=== PATIENT | male | born 1960 | race Caucasian/White ===

== ENCOUNTER 2024-02-02 11:35 | Inpatient (IN) | payer MEDICAID ==
[~2024-02-02] VITALS: Ht 165.1 cm
[~2024-02-02 11:35] MED LIST: FERR325T6 MT; PROT40 MT; SUCR1ORA15 PO
[2024-02-02 13:11] LABS: CHLORIDE 88 mEq/L (98-107); POTASSIUM 4.3 mEq/L (3.5-5.1); SODIUM 124 mEq/L (136-145)
[2024-02-02 13:12] LABS: CALCIUM 8.9 mg/dL (8.7-10.4); CARBON DIOXIDE 25 mEq/L (21-32)
[2024-02-02] MEDS: SODIUM CHLORIDE 0.9% 1000ML BAG (SEPSIS BOLUS) IV ONE (13:12)
[2024-02-02] MEDS: PIPERACILLIN/TAZO 3.375G/50ML 50 ML IV ONE (13:12)
[2024-02-02 13:16] LABS: HEMATOCRIT. 37.1 % (42.0-52.0); HEMOGLOBIN. 12.5 g/dL (14.0-18.0); MEAN CORPUSCULAR HEMOGLOBIN 32.5 pg (28.0-32.0); MEAN CORPUSCULAR HGB CONC 33.7 g/dL (31.0-37.0); MEAN CORPUSCULAR VOLUME 96.4 fL (80.0-94.0); MEAN PLATELET VOLUME 8.5 fl (7.4-10.4); PLATELET 188 x1000/uL (130-400); RED BLOOD CELL COUNT 3.85 mill/uL (4.7-6.1); RED CELL DISTRIBUTION WIDTH 13.8 % (11.6-14.6); WHITE BLOOD COUNT 18.5 x1000/uL (4.5-11.0)
[2024-02-02 13:16] LABS: INR 1.3
[2024-02-02 13:17] LABS: CREATININE 1.1 mg/dL (0.6-1.3); GLUCOSE 259 mg/dL (70-105); UREA NITROGEN BLOOD 14 mg/dL (9-23)
[2024-02-02 13:29] LABS: DIFFERENTIAL COMMENT 1
[2024-02-02] MEDS ORDERED: CLINDAMYCIN 600 MG in DEXTROSE 5% WATER 50 ML IV ONE (13:30)
[2024-02-02 14:16] LABS: PLATELET ESTIMATE NORMAL
[2024-02-02] MEDS: VANCOMYCIN 1G PREMIX 200 ML IV ONE (14:18)
[2024-02-02] MEDS: CLINDAMYCIN 600MG PREMIX 50 ML IV NR (14:52)
[2024-02-02 23:15] VITALS: BP 146/80; PULSE 102; RESP 20; TEMP 96.8
[2024-02-03] VITALS: BP 146/80; PULSE 102; RESP 20; TEMP 96.6
[2024-02-03] MEDS ORDERED: HYDROCODONE/ACETAMINOPHEN 5/325MG TABLET PO PRN ×2 (03:30→04:15)
[2024-02-03] MEDS ORDERED: NALOXONE HCL 0.4MG/ML VIAL IV PRN ×2 (03:45→04:30)
[2024-02-03 04:00] VITALS: BP 99/51; PULSE 93; RESP 18; TEMP 98.2
[2024-02-03] MEDS ORDERED: ONDANSETRON HCL 4MG/2ML INJ IV PRN (04:15)
[2024-02-03] MEDS ORDERED: MAGNESIUM/ALUMINUM HYDROXIDE/SIMETHICONE 30ML UDC PO PRN (04:15)
[2024-02-03] MEDS ORDERED: DEXTROSE 50% WATER 50ML SYRINGE IV PRN ×2 (04:15)
[2024-02-03] MEDS: AMLODIPINE 10MG TABLET PO SCH (04:15)
[2024-02-03] MEDS ORDERED: CLONIDINE 0.1MG TABLET PO PRN (04:15)
[2024-02-03] MEDS: VANCOMYCIN 750MG/150ML (BAXTER) IV SCH ×2 (06:30→16:47)
[2024-02-03 06:44] LABS: CHLORIDE 92 mEq/L (98-107); POTASSIUM 3.8 mEq/L (3.5-5.1); SODIUM 125 mEq/L (136-145)
[2024-02-03 06:45] LABS: CALCIUM 8.3 mg/dL (8.7-10.4); CARBON DIOXIDE 23 mEq/L (21-32)
[2024-02-03 06:50] LABS: ALANINE AMINOTRANSFERASE 24 IU/L (10-49); CREATININE 0.8 mg/dL (0.6-1.3); GLUCOSE 248 mg/dL (70-105); UREA NITROGEN BLOOD 14 mg/dL (9-23)
[2024-02-03 06:52] LABS: ASPARTATE AMINOTRANSFERASE 33 IU/L (<34); BILIRUBIN TOTAL 0.8 mg/dL (0.1-1.0); PROTEIN TOTAL 6.8 g/dL (6.0-8.3)
[2024-02-03] MEDS: BLOOD SUGAR DIAGNOSTIC STRIP TEST SCH (07:10)
[2024-02-03 08:00] VITALS: BP 109/66; PULSE 90; RESP 20; TEMP 97.9
[2024-02-03] MEDS: PANTOPRAZOLE SODIUM 40 MG/VIAL IV SCH (08:50)
[2024-02-03 08:51] LABS: HEMATOCRIT. 31.3 % (42.0-52.0); HEMOGLOBIN. 10.9 g/dL (14.0-18.0); MEAN CORPUSCULAR HEMOGLOBIN 32.8 pg (28.0-32.0); MEAN CORPUSCULAR HGB CONC 34.7 g/dL (31.0-37.0); MEAN CORPUSCULAR VOLUME 94.5 fL (80.0-94.0); MEAN PLATELET VOLUME 9.3 fl (7.4-10.4); PLATELET 166 x1000/uL (130-400); RED BLOOD CELL COUNT 3.32 mill/uL (4.7-6.1); RED CELL DISTRIBUTION WIDTH 14.2 % (11.6-14.6); WHITE BLOOD COUNT 16.7 x1000/uL (4.5-11.0)
[2024-02-03 08:52] LABS: DIFFERENTIAL COMMENT 1
[2024-02-03] MEDS: INSULIN LISPRO 100 UNITS/ML SUBCUT SCH (09:29)
[2024-02-03] MEDS ORDERED: HEPARIN 25,000 UNITS PREMIX 250 ML IV SCH (09:45)
[2024-02-03] MEDS: PIPERACILLIN/TAZO 3.375G/50ML 50 ML IV NR (10:15)
[2024-02-03 10:57] LABS: CLARITY URINE CLEAR (CLEAR); COLOR URINE YELLOW (YELLOW); GLUCOSE URINE 3+ (NEGATIVE); KETONES URINE 1+ (NEGATIVE); LEUKOCYTE ESTERASE URINE NEGATIVE (NEGATIVE); NITRITE URINE NEGATIVE (NEGATIVE); OCCULT BLOOD URINE NEGATIVE (NEGATIVE); PH URINE 6.5 (4.5-8.0); PROTEIN URINE NEGATIVE (NEGATIVE); SPECIFIC GRAVITY URINE 1.026 (1.005-1.030)
[2024-02-03 11:21] LABS: *AMPHETAMINES SCREEN URINE NEGATIVE (NEGATIVE); *BARBITURATES SCREEN URINE NEGATIVE (NEGATIVE); *COCAINE SCREEN URINE NEGATIVE (NEGATIVE)
[2024-02-03 11:22] LABS: ECSTASY MDMA SCREEN URINE NEGATIVE (NEGATIVE); METHADONE URINE SCREEN NEGATIVE (NEGATIVE); OPIATES URINE SCREEN NEGATIVE (NEGATIVE); PHENCYCLIDINE URINE SCREEN NEGATIVE (NEGATIVE)
[2024-02-03 12:00] VITALS: BP 128/77; PULSE 90; RESP 20; TEMP 98.2
[2024-02-03] MEDS: POVIDONE-IODINE 10% TOPICAL SOLN 240ML TOP SCH (12:00)
[2024-02-03 12:05] LABS: BACTERIA URINE NONE SEEN; SQUAMOUS EPITHELIAL CELL URINE RARE /lpf (RARE/1+)
[2024-02-03 12:06] LABS: RBC URINE 0-2 /hpf (0-2); WBC URINE NONE SEEN /hpf (0-2)
[2024-02-03 14:23] LABS: ERYTHROCYTE SEDIMENTATION RATE 96 mm/hr (0-20)
[2024-02-03] MEDS: HEPARIN 80 UNITS/KG BOLUS IV NR (14:32)
[2024-02-03] MEDS: HEPARIN 25,000 UNITS PREMIX 250 ML IV SCH (14:33)
[2024-02-03] MEDS: PIPERACILLIN/TAZO 3.375G/50ML 50 ML IV SCH (14:44)
[2024-02-03 16:00] VITALS: BP 130/64; PULSE 98; RESP 20; TEMP 98.1
[2024-02-03 16:36] LABS: PLATELET ESTIMATE NORMAL
[2024-02-03] MEDS: CLINDAMYCIN HCL 150MG CAPSULE PO SCH (19:40)
[2024-02-03 20:00] VITALS: BP 113/63; PULSE 95; RESP 18; TEMP 100
[2024-02-03] MEDS ORDERED: HEPARIN BOLUS PRN aPTT <36 IV (20:00)
[2024-02-03] MEDS ORDERED: HEPARIN BOLUS PRN aPTT 37-44 IV (20:00)
[2024-02-03] MEDS ORDERED: VANCOMYCIN 750MG/150ML (BAXTER) IV SCH (21:00)
[2024-02-04] VITALS: BP 94/61; PULSE 90; RESP 20; TEMP 97.2
[2024-02-04] MEDS: SODIUM CHLORIDE 0.9% 1,000 ML IV SCH (00:46)
[2024-02-04 04:00] VITALS: BP 99/52; PULSE 87; RESP 18; TEMP 98.8
[2024-02-04 07:19] LABS: MEAN CORPUSCULAR HEMOGLOBIN 32.6 pg (28.0-32.0); MEAN CORPUSCULAR HGB CONC 34.6 g/dL (31.0-37.0); MEAN CORPUSCULAR VOLUME 94.3 fL (80.0-94.0); PLATELET 160 x1000/uL (130-400); RED BLOOD CELL COUNT 3.07 mill/uL (4.7-6.1); RED CELL DISTRIBUTION WIDTH 13.9 % (11.6-14.6); WHITE BLOOD COUNT 12.8 x1000/uL (4.5-11.0)
[2024-02-04 07:27] LABS: CALCIUM 8.2 mg/dL (8.7-10.4); CARBON DIOXIDE 25 mEq/L (21-32); CHLORIDE 94 mEq/L (98-107); POTASSIUM 3.8 mEq/L (3.5-5.1); SODIUM 128 mEq/L (136-145)
[2024-02-04 07:28] LABS: THYROID STIMULATING HORMONE 1.59 uIU/mL (0.55-4.78)
[2024-02-04 07:29] LABS: T4 FREE 1.11 ng/dL (0.89-1.76)
[2024-02-04 07:31] LABS: PROTEIN TOTAL 6.6 g/dL (6.0-8.3)
[2024-02-04 07:32] LABS: CREATININE 0.8 mg/dL (0.6-1.3); GLUCOSE 242 mg/dL (70-105)
[2024-02-04 07:33] LABS: LDL CHOLESTEROL 45 mg/dL (5-100); TRIGLYCERIDE 76 mg/dL (0-150); UREA NITROGEN BLOOD 14 mg/dL (9-23)
[2024-02-04 07:34] LABS: ALANINE AMINOTRANSFERASE 23 IU/L (10-49); ALBUMIN 2.9 g/dL (3.2-4.8); ASPARTATE AMINOTRANSFERASE 29 IU/L (<34); CHOLESTEROL 81 mg/dL (<200); HDL CHOLESTEROL 22 mg/dL (>55)
[2024-02-04 07:35] LABS: BILIRUBIN DIRECT 0.4 mg/dL (<=3.0); BILIRUBIN TOTAL 0.7 mg/dL (0.1-1.0); PHOSPHORUS 3.2 mg/dL (2.5-4.9)
[2024-02-04 07:48] LABS: TROPONIN I HIGH SENSITIVITY < 4 ng/L (3.0-53)
[2024-02-04 08:00] VITALS: BP 111/60; PULSE 83; RESP 16; TEMP 97.2
[2024-02-04 08:04] LABS: DIFFERENTIAL COMMENT 1
[2024-02-04] MEDS ORDERED: BACITRACIN 14GM TUBE TOP ONE (09:11)
[2024-02-04] MEDS ORDERED: POLYMYXIN B SULFATE 500000 UNITS/VIAL ONE (09:11)
[2024-02-04] MEDS ORDERED: BUPIVACAINE HCL/PF 0.5% (5MG/ML) 10ML ONE (09:11)
[2024-02-04] MEDS ORDERED: LIDOCAINE HCL 1% 10 MG/ML 10ML VIAL ONE (09:12)
[2024-02-04] MEDS: VANCOMYCIN 1GM/200ML PMX (BAXTER) IV SCH (12:00)
[2024-02-04] MEDS ORDERED: PROPOFOL 200MG/20ML VIAL IV ONE (12:22)
[2024-02-04] MEDS ORDERED: MIDAZOLAM HCL 2 MG/2 ML VIAL ONE (12:22)
[2024-02-04] MEDS ORDERED: FENTANYL CITRATE/PF 50MCG/ML 2ML VIAL ONE (12:22)
[2024-02-04] MEDS ORDERED: LABETALOL 5MG/ML 4ML INJ IV PRN (12:45)
[2024-02-04] MEDS ORDERED: MEPERIDINE HCL/PF 25MG/ML CPJ IV PRN (12:45)
[2024-02-04] MEDS ORDERED: HYDROMORPHONE HCL/PF 2MG/ML INJ IV PRN (12:45)
[2024-02-04] MEDS ORDERED: ONDANSETRON HCL 4MG/2ML INJ IV PRN (12:45)
[2024-02-04 16:00] VITALS: BP 123/70; PULSE 95; RESP 20; TEMP 99.7
[2024-02-04 16:47] LABS: PLATELET ESTIMATE NORMAL
[2024-02-04] MEDS: LACTOBACILLUS GG CAPSULE PO SCH (18:55)
[2024-02-04] MEDS: ENOXAPARIN 40MG/0.4ML SYR SUBCUT SCH (18:55)
[2024-02-04 20:00] VITALS: BP 102/60; PULSE 72; RESP 18; TEMP 100
[2024-02-04] MEDS: ACETAMINOPHEN 325MG TABLET PO PRN (20:53)
[2024-02-05] VITALS: BP 90/58; PULSE 80; RESP 18; TEMP 96.9
[2024-02-05 04:00] VITALS: BP 100/49; PULSE 76; RESP 18; TEMP 97.9
[2024-02-05 07:20] LABS: HEMATOCRIT. 31.2 % (42.0-52.0); HEMOGLOBIN. 10.6 g/dL (14.0-18.0); MEAN CORPUSCULAR HEMOGLOBIN 32.3 pg (28.0-32.0); MEAN PLATELET VOLUME 8.4 fl (7.4-10.4); PLATELET 167 x1000/uL (130-400); RED BLOOD CELL COUNT 3.28 mill/uL (4.7-6.1); RED CELL DISTRIBUTION WIDTH 13.9 % (11.6-14.6); WHITE BLOOD COUNT 13.1 x1000/uL (4.5-11.0)
[2024-02-05 07:33] LABS: DIFFERENTIAL COMMENT 1
[2024-02-05 07:35] LABS: CARBON DIOXIDE 26 mEq/L (21-32); CHLORIDE 96 mEq/L (98-107); POTASSIUM 3.9 mEq/L (3.5-5.1); SODIUM 130 mEq/L (136-145)
[2024-02-05 07:36] LABS: CALCIUM 8.5 mg/dL (8.7-10.4)
[2024-02-05 07:40] LABS: CREATININE 0.7 mg/dL (0.6-1.3)
[2024-02-05 07:41] LABS: GLUCOSE 180 mg/dL (70-105); UREA NITROGEN BLOOD 11 mg/dL (9-23)
[2024-02-05 07:42] LABS: ALANINE AMINOTRANSFERASE 32 IU/L (10-49); ALBUMIN 3.2 g/dL (3.2-4.8); ASPARTATE AMINOTRANSFERASE 49 IU/L (<34)
[2024-02-05 07:43] LABS: BILIRUBIN DIRECT 0.5 mg/dL (<=3.0); BILIRUBIN TOTAL 0.9 mg/dL (0.1-1.0); PHOSPHORUS 3.1 mg/dL (2.5-4.9)
[2024-02-05 08:00] VITALS: BP 105/60; PULSE 74; RESP 20; TEMP 97.5
[2024-02-05] MEDS: ASPIRIN 81MG TABLET PO SCH (08:30)
[2024-02-05 12:00] VITALS: BP 110/62; PULSE 78; RESP 18; TEMP 98.9
[2024-02-05 15:41] LABS: NUCLEATED RED BLOOD CELLS 1 /100 WBC
[2024-02-05 15:42] LABS: PLATELET ESTIMATE NORMAL
[2024-02-05 16:00] VITALS: BP 102/65; PULSE 80; RESP 18; TEMP 98.9
[2024-02-05 20:00] VITALS: BP 104/58; PULSE 78; RESP 18; TEMP 97.7
[2024-02-06] VITALS: BP 104/60; PULSE 80; RESP 18; TEMP 97.8
[2024-02-06 04:00] VITALS: BP 99/51; PULSE 74; RESP 20; TEMP 97.9
[2024-02-06 08:00] VITALS: BP 105/59; PULSE 78; RESP 20; TEMP 97.5
[2024-02-06 12:00] VITALS: BP 100/62; PULSE 80; RESP 20; TEMP 98.5
[2024-02-06] MEDS: INSULIN GLARGINE 100 UNITS/ML SUBCUT SCH (15:32)
[2024-02-06 16:00] VITALS: BP 106/64; PULSE 80; RESP 18; TEMP 97.9
[2024-02-06] MEDS: INSULIN LISPRO 100 UNITS/ML SUBCUT SCH (17:38)
[2024-02-06 20:00] VITALS: BP 117/59; PULSE 75; RESP 20; TEMP 97.5
[2024-02-07] VITALS: BP 104/56; PULSE 76; RESP 18; TEMP 98.8
[2024-02-07 04:00] VITALS: BP 103/51; PULSE 73; RESP 18; TEMP 98.1
[2024-02-07 07:01] LABS: CARBON DIOXIDE 24 mEq/L (21-32); CHLORIDE 99 mEq/L (98-107); POTASSIUM 3.8 mEq/L (3.5-5.1); SODIUM 131 mEq/L (136-145)
[2024-02-07 07:02] LABS: CALCIUM 8.4 mg/dL (8.7-10.4)
[2024-02-07 07:03] LABS: BASOPHILS % 0.9 % (0.0-2.0); HEMATOCRIT. 30.7 % (42.0-52.0); HEMOGLOBIN. 10.5 g/dL (14.0-18.0); LYMPHOCYTES % 13.3 % (20.0-50.0); MEAN CORPUSCULAR HEMOGLOBIN 32.4 pg (28.0-32.0); MEAN CORPUSCULAR HGB CONC 34.4 g/dL (31.0-37.0); MEAN CORPUSCULAR VOLUME 94.3 fL (80.0-94.0); MEAN PLATELET VOLUME 8.8 fl (7.4-10.4); MONOCYTES % 10.8 % (2.0-8.0); PLATELET 178 x1000/uL (130-400); RED BLOOD CELL COUNT 3.25 mill/uL (4.7-6.1); WHITE BLOOD COUNT 6.7 x1000/uL (4.5-11.0)
[2024-02-07 07:07] LABS: CREATININE 0.8 mg/dL (0.6-1.3); GLUCOSE 240 mg/dL (70-105); UREA NITROGEN BLOOD 11 mg/dL (9-23)
[2024-02-07 08:00] VITALS: BP 143/75; PULSE 90; RESP 18; TEMP 96
[2024-02-07 12:00] VITALS: BP 123/74; PULSE 80; RESP 20; TEMP 97
[2024-02-07 16:00] VITALS: BP 124/76; PULSE 73; RESP 20; TEMP 97.6
[2024-02-07] MEDS: VANCOMYCIN 750MG/150ML (BAXTER) IV SCH (18:22)
[2024-02-07 20:00] VITALS: BP 124/76; PULSE 76; RESP 18; TEMP 97.5
[2024-02-08] VITALS: BP 127/68; PULSE 74; RESP 17; TEMP 97.6
[2024-02-08 07:47] LABS: CALCIUM 8.5 mg/dL (8.7-10.4); POTASSIUM 3.9 mEq/L (3.5-5.1)
[2024-02-08 08:00] VITALS: BP 100/56; PULSE 80; RESP 20; TEMP 98
[2024-02-08 08:02] LABS: BASOPHILS % 0.8 % (0.0-2.0); EOSINOPHILS % 2.8 % (0.0-5.0); HEMATOCRIT. 31.4 % (42.0-52.0); HEMOGLOBIN. 10.7 g/dL (14.0-18.0); LYMPHOCYTES % 14.3 % (20.0-50.0); MEAN CORPUSCULAR HEMOGLOBIN 32.4 pg (28.0-32.0); MEAN CORPUSCULAR HGB CONC 34.1 g/dL (31.0-37.0); MEAN PLATELET VOLUME 8.8 fl (7.4-10.4); MONOCYTES % 12.2 % (2.0-8.0); NEUTROPHILS % 69.9 % (40.0-76.0); PLATELET 191 x1000/uL (130-400); RED BLOOD CELL COUNT 3.31 mill/uL (4.7-6.1); RED CELL DISTRIBUTION WIDTH 13.9 % (11.6-14.6); WHITE BLOOD COUNT 6.3 x1000/uL (4.5-11.0)
[2024-02-08 08:06] LABS: CREATININE 1.4 mg/dL (0.6-1.3)
[2024-02-08] MEDS: INSULIN GLARGINE 100 UNITS/ML SUBCUT SCH (11:42)
[2024-02-08 12:00] VITALS: BP 138/80; PULSE 78; RESP 20; TEMP 97
[2024-02-08 16:00] VITALS: BP 140/79; PULSE 85; RESP 20; TEMP 97.6
[2024-02-08 20:00] VITALS: BP 123/69; PULSE 82; RESP 18; TEMP 97.7
[2024-02-09] VITALS (7 sets, daily range): BP systolic 90–143; BP diastolic 54–82; PULSE 77–98; RESP 16–18; TEMP 96.9–98
[2024-02-09 05:38] LABS: CALCIUM 8.8 mg/dL (8.7-10.4); POTASSIUM 3.9 mEq/L (3.5-5.1)
[2024-02-09 05:43] LABS: CREATININE 1.4 mg/dL (0.6-1.3)
[2024-02-09] MEDS: FAMOTIDINE 20MG/2ML VIAL IV SCH (09:23)
[2024-02-09] MEDS: CEFTRIAXONE 2GM/50ML 50ML IV SCH (16:35)
[2024-02-09] MEDS: IOHEXOL-350 100 ML BOTTLE ONE (19:54)
[2024-02-10] VITALS: BP 121/75; PULSE 78; RESP 18; TEMP 97.8
[2024-02-10 04:00] VITALS: BP 125/80; PULSE 83; RESP 17; TEMP 97.9
[2024-02-10 07:10] LABS: EOSINOPHILS % 3.8 % (0.0-5.0); HEMATOCRIT. 29.8 % (42.0-52.0); HEMOGLOBIN. 10.1 g/dL (14.0-18.0); LYMPHOCYTES % 16.8 % (20.0-50.0); MEAN CORPUSCULAR HGB CONC 33.8 g/dL (31.0-37.0); MEAN CORPUSCULAR VOLUME 94.7 fL (80.0-94.0); MEAN PLATELET VOLUME 8.8 fl (7.4-10.4); MONOCYTES % 9.8 % (2.0-8.0); NEUTROPHILS % 67.6 % (40.0-76.0); PLATELET 192 x1000/uL (130-400); RED BLOOD CELL COUNT 3.14 mill/uL (4.7-6.1); RED CELL DISTRIBUTION WIDTH 13.9 % (11.6-14.6); WHITE BLOOD COUNT 6.3 x1000/uL (4.5-11.0)
[2024-02-10 07:44] LABS: POTASSIUM 4.1 mEq/L (3.5-5.1)
[2024-02-10 07:45] LABS: CALCIUM 8.6 mg/dL (8.7-10.4)
[2024-02-10 07:50] LABS: CREATININE 1.3 mg/dL (0.6-1.3)
[2024-02-10 08:00] VITALS: BP 100/65; PULSE 71; RESP 20; TEMP 96.8
[2024-02-10 12:00] VITALS: BP 98/64; PULSE 83; RESP 18; TEMP 97.7
[2024-02-10 16:00] VITALS: BP 113/80; PULSE 73; RESP 18; TEMP 98.1
[2024-02-10 20:00] VITALS: BP 117/71; PULSE 75; RESP 18; TEMP 98
[2024-02-11] VITALS: BP 112/63; PULSE 75; RESP 19; TEMP 98.1
[2024-02-11 04:00] VITALS: BP 106/65; PULSE 76; RESP 17; TEMP 98.2
[2024-02-11 05:18] LABS: POTASSIUM 4.2 mEq/L (3.5-5.1)
[2024-02-11 05:19] LABS: CALCIUM 8.6 mg/dL (8.7-10.4)
[2024-02-11 05:24] LABS: CREATININE 1.3 mg/dL (0.6-1.3)
[2024-02-11 06:35] LABS: BASOPHILS % 1.5 % (0.0-2.0); EOSINOPHILS % 3.1 % (0.0-5.0); HEMATOCRIT. 30.5 % (42.0-52.0); HEMOGLOBIN. 10.2 g/dL (14.0-18.0); LYMPHOCYTES % 17.1 % (20.0-50.0); MEAN CORPUSCULAR HEMOGLOBIN 31.9 pg (28.0-32.0); MEAN CORPUSCULAR HGB CONC 33.4 g/dL (31.0-37.0); MEAN CORPUSCULAR VOLUME 95.5 fL (80.0-94.0); MEAN PLATELET VOLUME 8.6 fl (7.4-10.4); MONOCYTES % 11.5 % (2.0-8.0); NEUTROPHILS % 66.8 % (40.0-76.0); PLATELET 176 x1000/uL (130-400); RED BLOOD CELL COUNT 3.19 mill/uL (4.7-6.1); RED CELL DISTRIBUTION WIDTH 14.4 % (11.6-14.6); WHITE BLOOD COUNT 6.1 x1000/uL (4.5-11.0)
[2024-02-11 08:00] VITALS: BP 111/61; PULSE 74; RESP 18; TEMP 97.9
[2024-02-11 12:00] VITALS: BP 114/70; PULSE 78; RESP 18; TEMP 97.7
[2024-02-11 16:00] VITALS: BP 113/68; PULSE 80; RESP 20; TEMP 97.7
[2024-02-11 20:00] VITALS: BP 118/74; PULSE 79; RESP 19; TEMP 97.6
[2024-02-12] VITALS: BP 95/61; PULSE 74; RESP 18; TEMP 97
[2024-02-12 04:00] VITALS: BP 96/52; PULSE 72; RESP 18; TEMP 97.6
[2024-02-12 08:00] VITALS: BP 120/72; PULSE 75; RESP 20; TEMP 97.7
[2024-02-12] MEDS: POVIDONE-IODINE 10% TOPICAL SOLN 240ML TOP SCH (09:10)
[2024-02-12] MEDS: INSULIN GLARGINE 100 UNITS/ML SUBCUT SCH (09:10)
[2024-02-12 12:00] VITALS: BP 108/52; PULSE 75; RESP 20; TEMP 98.2
[2024-02-12 16:00] VITALS: BP 100/52; PULSE 80; RESP 20; TEMP 98.1
[2024-02-12 20:00] VITALS: BP 103/61; PULSE 81; RESP 18; TEMP 97.8
[2024-02-13] VITALS: BP 107/58; PULSE 76; RESP 18; TEMP 97.6
[2024-02-13 04:00] VITALS: BP 109/57; PULSE 73; RESP 18; TEMP 97.7
[2024-02-13 08:00] VITALS: BP 104/64; PULSE 76; RESP 15; TEMP 97.7
[2024-02-13 12:00] VITALS: BP 120/70; PULSE 72; RESP 16; TEMP 97.8
[2024-02-13 16:00] VITALS: BP 118/68; PULSE 74; RESP 18; TEMP 97.7
[2024-02-13 20:00] VITALS: BP 118/71; PULSE 85; RESP 17; TEMP 99.7
[2024-02-14] VITALS: BP 95/56; PULSE 82; RESP 18; TEMP 98.2
[2024-02-14 04:00] VITALS: BP 125/77; PULSE 75; RESP 18; TEMP 98.2
[2024-02-14 08:00] VITALS: BP 128/71; PULSE 78; RESP 18; TEMP 98.2
[2024-02-14] MEDS: INSULIN GLARGINE 100 UNITS/ML SUBCUT SCH (09:44)
[2024-02-14 12:00] VITALS: BP 120/68; PULSE 76; RESP 18; TEMP 97.8
[2024-02-14 16:00] VITALS: BP 115/71; PULSE 76; RESP 15; TEMP 97.7
[2024-02-14] MEDS: METFORMIN HCL 500MG TABLET PO SCH (17:20)
[2024-02-14 20:00] VITALS: BP 118/69; PULSE 77; RESP 20; TEMP 97.4
[2024-02-15] VITALS: BP 117/70; PULSE 74; RESP 18; TEMP 97.9
[2024-02-15 08:00] VITALS: BP 108/63; PULSE 71; RESP 16; TEMP 97.4
[2024-02-15 12:00] VITALS: BP 137/98; PULSE 71; RESP 17; TEMP 97.9
[2024-02-15 16:00] VITALS: BP 110/74; PULSE 90; RESP 18; TEMP 97.6
[2024-02-15 20:00] VITALS: BP 115/69; PULSE 77; RESP 17; TEMP 97.7
[2024-02-16] VITALS: BP 117/68; PULSE 74; RESP 18; TEMP 97.5
[2024-02-16 04:00] VITALS: BP 106/64; PULSE 75; RESP 18; TEMP 97.7
[2024-02-16 08:00] VITALS: BP 109/66; PULSE 77; RESP 18; TEMP 97.9
[2024-02-16] MEDS ORDERED: ASPI-1160 PO (11:44)
[2024-02-16] MEDS ORDERED: AMLO10TA80 PO (11:44)
[2024-02-16] MEDS ORDERED: LANTUSUD SUBCUT (11:44)
[2024-02-16] MEDS ORDERED: METF-414 PO (11:44)
[2024-02-16 12:00] VITALS: BP 110/67; PULSE 79; RESP 18; TEMP 98
[2024-02-16 16:00] VITALS: BP 105/66; PULSE 76; RESP 19; TEMP 98.1
[2024-02-16 19:37] VITALS: BP 106/66; PULSE 76; TEMP 98.6; O2SAT 99
== END 2024-02-16 20:15 | DRG 710 ==
LOC: ER 11:35 → 5WST 13:25 → EDBEDREQSVC 13:26 → EDBEDREQTM 13:26 → EDBEDREQ 13:26 → 8WST 22:56 → 6EST 02-16 12:07
PROVIDERS: ADMIT Family Medicine Adult Medicine; ATTEND Family Medicine Adult Medicine
PROC: 0Y6V0Z0 Detachment at Right 4th Toe, Complete, Open Approach (ICD-10-PCS; principal; 2024-02-04)
PROC: 02HV33Z Insertion of Infusion Device into Superior Vena Cava, Percutaneous Approach (ICD-10-PCS; 2024-02-10)
PROC: B5181ZA Fluoroscopy of Superior Vena Cava using Low Osmolar Contrast, Guidance (ICD-10-PCS; 2024-02-10)
PROC: B548ZZA Ultrasonography of Superior Vena Cava, Guidance (ICD-10-PCS; 2024-02-10)
DX: A41.9 Sepsis, unspecified organism (principal); M72.6 Necrotizing fasciitis; A48.0 Gas gangrene; E11.52 Type 2 diabetes mellitus with diabetic peripheral angiopathy with gangrene; E11.69 Type 2 diabetes mellitus with other specified complication; E87.1 Hypo-osmolality and hyponatremia; D53.9 Nutritional anemia, unspecified; L02.611 Cutaneous abscess of right foot; M86.8X7 Other osteomyelitis, ankle and foot; J43.9 Emphysema, unspecified; R81 Glycosuria; I25.10 Atherosclerotic heart disease of native coronary artery without angina pectoris; Z79.4 Long term (current) use of insulin; Z79.82 Long term (current) use of aspirin; Z79.84 Long term (current) use of oral hypoglycemic drugs; Z79.899 Other long term (current) drug therapy
CPT/HCPCS: 36415; 36573; 73590; 73630; 73721; 75635; 80048; 80053; 80061; 80076; 80202; 80305; 81003; 82962; 83036; 83605; 83735; 84100; 84145; 84439; 84443; 84484; 85025; 85651; 86850; 86900; 87070; 87075; 87077; 87186; 88304; 88311; 93005; 93923; 93970; 97022; 97116; 97162; 97166; 97530; 99291; C1725; C9113; J0696; J1644; J1650; J1815; J2250; J2470; J2543; J2704; J3010; J3370; J3490; J7030; J7060; Q9967

== ENCOUNTER 2025-05-29 16:03 | Inpatient (IN) | payer MEDICAID ==
[~2025-05-29] VITALS: Ht 165.1 cm; Wt 71.7 kg
[~2025-05-29 16:03] MED LIST changes: +ASPI-1160 PO; +METF-414 PO
[2025-05-29 16:12] VITALS: O2SAT 98
[2025-05-29] MEDS: PIPERACILLIN/TAZO 3.375G/50ML 50 ML IV ONE (21:18)
[2025-05-29] MEDS: SODIUM CHLORIDE 0.9% (SEPSIS BOLUS) IV ONE (21:18)
[2025-05-29 21:27] LABS: HEMATOCRIT. 34.6 % (42.0-52.0); HEMOGLOBIN. 11.6 g/dL (14.0-18.0); MEAN PLATELET VOLUME 9.8 fl (7.4-10.4); PLATELET 174 x1000/uL (130-400); RED BLOOD CELL COUNT 3.65 mill/uL (4.7-6.1); RED CELL DISTRIBUTION WIDTH 13.2 % (11.6-14.6)
[2025-05-29] MEDS: MORPHINE SULFATE 4 MG/ML INJ (FOR IV/IM USE) IV ONE (21:30)
[2025-05-29] MEDS: ONDANSETRON HCL 4MG/2ML INJ IV ONE (21:31)
[2025-05-29 21:37] LABS: INR 1.1
[2025-05-29 21:43] LABS: CREATININE 1.2 mg/dL (0.6-1.3)
[2025-05-29 21:44] LABS: UREA NITROGEN BLOOD 13 mg/dL (9-23)
[2025-05-29 21:45] LABS: ASPARTATE AMINOTRANSFERASE 31 IU/L (<34)
[2025-05-29 21:46] LABS: BILIRUBIN DIRECT 0.4 mg/dL (<=3.0); BILIRUBIN TOTAL 0.8 mg/dL (0.1-1.0); PROTEIN TOTAL 7.5 g/dL (6.0-8.3)
[2025-05-29 21:51] LABS: EOSINOPHILS % MANUAL 7.0 % (0.0-5.0); LYMPHOCYTES % MANUAL 5.0 % (20.0-50.0); MONOCYTES % MANUAL 12.0 % (2.0-8.0); NEUTROPHILS % MANUAL 76.0 % (45.0-75.0)
[2025-05-29 21:52] LABS: PLATELET ESTIMATE NORMAL
[2025-05-29] MEDS: VANCOMYCIN 1G PREMIX 200 ML IV ONE (22:30)
[2025-05-29 22:41] LABS: CLARITY URINE CLEAR (CLEAR); COLOR URINE YELLOW (YELLOW); GLUCOSE URINE 3+ (NEGATIVE); KETONES URINE 1+ (NEGATIVE); LEUKOCYTE ESTERASE URINE NEGATIVE (NEGATIVE); NITRITE URINE NEGATIVE (NEGATIVE); OCCULT BLOOD URINE NEGATIVE (NEGATIVE); PH URINE 6.5 (4.5-8.0); PROTEIN URINE NEGATIVE (NEGATIVE); SPECIFIC GRAVITY URINE 1.033 (1.005-1.030); UROBILINOGEN URINE 0.2 E.U./dL (0.2-1.0)
[2025-05-29 22:50] LABS: WBC URINE 0-2 /hpf (0-2)
[2025-05-29 22:51] LABS: BACTERIA URINE TRACE; RBC URINE NONE SEEN /hpf (0-2); SQUAMOUS EPITHELIAL CELL URINE NONE SEEN /lpf (RARE/1+)
[2025-05-29] MEDS: INSULIN LISPRO 100 UNITS/ML SUBCUT ONE (23:16)
[2025-05-30] VITALS (7 sets, daily range): BP systolic 97–141; BP diastolic 58–73; PULSE 84–98; RESP 17–19; TEMP 36.1–36.4; O2SAT 99–100
[2025-05-30] MEDS ORDERED: NALOXONE HCL 0.4MG/ML VIAL IV PRN (04:15)
[2025-05-30] MEDS ORDERED: HYDROCODONE/ACETAMINOPHEN 10/325MG TABLET PO PRN (04:15)
[2025-05-30] MEDS ORDERED: DEXTROSE 50% WATER 50ML SYRINGE IV PRN (04:15)
[2025-05-30] MEDS: PIPERACILLIN/TAZO 3.375G/50ML 50 ML IV SCH (05:14)
[2025-05-30] MEDS: BLOOD SUGAR DIAGNOSTIC STRIP TEST SCH (07:20)
[2025-05-30] MEDS: INSULIN LISPRO 100 UNITS/ML SUBCUT SCH (08:57)
[2025-05-30] MEDS: ENOXAPARIN 40MG/0.4ML SYR SUBCUT SCH (09:00)
[2025-05-30] MEDS: VANCOMYCIN 750MG/150ML (BAXTER) IV SCH (09:57)
[2025-05-30] MEDS: INSULIN GLARGINE 100 UNITS/ML SUBCUT SCH (10:43)
[2025-05-30] MEDS ORDERED: SODIUM CHLORIDE 0.9% 500 ML IV NR (15:45)
[2025-05-31] VITALS: BP 116/60; PULSE 86; RESP 18; TEMP 36.3; O2SAT 100
[2025-05-31 04:00] VITALS: BP 110/68; PULSE 88; RESP 18; TEMP 36.3; O2SAT 98
[2025-05-31] MEDS ORDERED: HYDROMORPHONE HCL/PF 1MG/ML INJ IV PRN ×2 (06:45→07:00)
[2025-05-31] MEDS ORDERED: ONDANSETRON HCL 4MG/2ML INJ IV PRN (06:45)
[2025-05-31] MEDS ORDERED: LIDOCAINE HCL 1% 10 MG/ML 10ML VIAL ONE (06:48)
[2025-05-31] MEDS ORDERED: BUPIVACAINE HCL/PF 0.5% (5MG/ML) 10ML ONE (06:48)
[2025-05-31] MEDS ORDERED: POLYMYXIN B SULFATE 500000 UNITS/VIAL ONE ×2 (06:48→13:57)
[2025-05-31] MEDS ORDERED: ONDANSETRON HCL 4MG/2ML INJ ONE (06:49)
[2025-05-31] MEDS ORDERED: PROPOFOL 200MG/20ML VIAL IV ONE (06:49)
[2025-05-31] MEDS ORDERED: EPHEDRINE SULFATE 50MG/ML VIAL ONE (06:49)
[2025-05-31] MEDS ORDERED: MIDAZOLAM HCL 2 MG/2 ML VIAL ONE ×2 (06:50→13:43)
[2025-05-31] MEDS ORDERED: FENTANYL CITRATE/PF 50MCG/ML 2ML VIAL ONE ×2 (06:50→14:00)
[2025-05-31] MEDS ORDERED: PHENYLEPHRINE HCL 10MG/ML 1ML IV ONE (06:50)
[2025-05-31 07:00] LABS: HEMATOCRIT. 29.1 % (42.0-52.0); HEMOGLOBIN. 10.0 g/dL (14.0-18.0); MEAN PLATELET VOLUME 10.0 fl (7.4-10.4); PLATELET 180 x1000/uL (130-400); RED BLOOD CELL COUNT 3.12 mill/uL (4.7-6.1); RED CELL DISTRIBUTION WIDTH 13.4 % (11.6-14.6)
[2025-05-31 07:08] LABS: CREATININE 0.8 mg/dL (0.6-1.3)
[2025-05-31 07:09] LABS: LDL CHOLESTEROL 53 mg/dL (5-100); TRIGLYCERIDE 102 mg/dL (0-150); UREA NITROGEN BLOOD 10 mg/dL (9-23)
[2025-05-31 08:00] VITALS: BP 129/74; PULSE 82; RESP 18; TEMP 36.3; O2SAT 99
[2025-05-31] MEDS: VANCOMYCIN 1GM PMX (XELLIA) 200 ML IV SCH (15:00)
[2025-05-31 16:00] VITALS: BP 125/74; PULSE 97; RESP 18; TEMP 36.7; O2SAT 99
[2025-05-31 20:00] VITALS: BP 123/60; PULSE 94; RESP 18; TEMP 36.5; O2SAT 98
[2025-05-31 20:58] LABS: EOSINOPHILS % MANUAL 18.0 % (0.0-5.0); LYMPHOCYTES % MANUAL 6.0 % (20.0-50.0); MONOCYTES % MANUAL 5.0 % (2.0-8.0); NEUTROPHILS % MANUAL 71.0 % (45.0-75.0); PLATELET ESTIMATE NORMAL
[2025-06-01] VITALS: BP 122/66; PULSE 94; RESP 17; TEMP 36.8; O2SAT 97
[2025-06-01 04:00] VITALS: BP 101/62; PULSE 90; RESP 19; TEMP 36.6; O2SAT 100
[2025-06-01 20:00] VITALS: BP 116/62; PULSE 87; RESP 18; TEMP 36.5; O2SAT 97
[2025-06-02] VITALS: BP 108/57; PULSE 93; RESP 18; TEMP 36.3; O2SAT 98
[2025-06-02] MEDS ORDERED: IOHEXOL-350 100 ML BOTTLE ONE (00:10)
[2025-06-02 04:00] VITALS: BP 109/55; PULSE 83; RESP 18; TEMP 36.6; O2SAT 96
[2025-06-02 04:02] LABS: CREATININE 0.9 mg/dL (0.6-1.3); UREA NITROGEN BLOOD 9 mg/dL (9-23)
[2025-06-02 08:00] VITALS: BP 113/61; PULSE 76; RESP 18; TEMP 35.8; O2SAT 97
[2025-06-02 12:00] VITALS: BP 118/54; PULSE 72; RESP 18; TEMP 36.5; O2SAT 96
[2025-06-02 16:00] VITALS: BP 114/62; PULSE 78; RESP 18; TEMP 36.7; O2SAT 97
[2025-06-02 20:00] VITALS: BP 121/71; PULSE 83; RESP 16; TEMP 36.6; O2SAT 98
[2025-06-03] VITALS: BP 111/68; PULSE 77; RESP 18; TEMP 36.5; O2SAT 98
[2025-06-03 08:00] VITALS: BP 96/54; PULSE 82; RESP 18; TEMP 36.2; O2SAT 97
[2025-06-03 12:00] VITALS: BP 92/59; PULSE 82; RESP 18; TEMP 36.3; O2SAT 97
[2025-06-03 16:00] VITALS: BP 96/56; PULSE 80; RESP 18; TEMP 36.3; O2SAT 98
[2025-06-03 20:00] VITALS: BP 104/63; PULSE 84; RESP 18; TEMP 36.4; O2SAT 96
[2025-06-04] VITALS: BP 103/61; PULSE 82; RESP 18; TEMP 36.4; O2SAT 97
[2025-06-04 04:00] VITALS: BP 105/62; PULSE 80; RESP 18; TEMP 36.4; O2SAT 97
[2025-06-04 20:00] VITALS: BP 105/62; PULSE 88; RESP 16; TEMP 36.4; O2SAT 95
[2025-06-05] VITALS: BP 108/65; PULSE 83; RESP 16; TEMP 36.1; O2SAT 99
[2025-06-05 04:00] VITALS: BP 109/70; PULSE 83; RESP 16; TEMP 36.2; O2SAT 97
[2025-06-05] MEDS: DIPHENHYDRAMINE 50MG/ML VIAL IV SCH (05:25)
[2025-06-05 08:15] VITALS: BP 110/75; PULSE 86; RESP 15; TEMP 36.4; O2SAT 99
[2025-06-05 09:06] LABS: HEMATOCRIT. 32.5 % (42.0-52.0); HEMOGLOBIN. 10.8 g/dL (14.0-18.0); MEAN PLATELET VOLUME 9.0 fl (7.4-10.4); PLATELET 230 x1000/uL (130-400); RED BLOOD CELL COUNT 3.43 mill/uL (4.7-6.1); RED CELL DISTRIBUTION WIDTH 13.5 % (11.6-14.6)
[2025-06-05 09:31] LABS: CREATININE 0.9 mg/dL (0.6-1.3)
[2025-06-05 09:32] LABS: UREA NITROGEN BLOOD 10 mg/dL (9-23)
[2025-06-05 16:00] VITALS: BP 107/69; PULSE 88; RESP 16; TEMP 36.3
[2025-06-05] MEDS: MEROPENEM 1G/100ML 100 ML IV SCH (18:33)
[2025-06-05 19:43] LABS: EOSINOPHILS % MANUAL 16.0 % (0.0-5.0); LYMPHOCYTES % MANUAL 13.0 % (20.0-50.0); MONOCYTES % MANUAL 12.0 % (2.0-8.0); NEUTROPHILS % MANUAL 59.0 % (45.0-75.0); PLATELET ESTIMATE NORMAL
[2025-06-05 20:00] VITALS: BP 114/84; PULSE 83; RESP 18; TEMP 36.6; O2SAT 99
[2025-06-06] VITALS: BP 109/80; PULSE 70; RESP 16; TEMP 36.1; O2SAT 95
[2025-06-06 04:00] VITALS: BP 132/71; PULSE 69; RESP 17; TEMP 36.4; O2SAT 96
[2025-06-06 07:51] LABS: CREATININE 1.0 mg/dL (0.6-1.3); UREA NITROGEN BLOOD 10 mg/dL (9-23)
[2025-06-06 08:00] VITALS: BP 115/77; RESP 18; TEMP 36.1; O2SAT 96
[2025-06-06] MEDS: ASPIRIN 81MG TABLET PO SCH (10:06)
[2025-06-06] MEDS ORDERED: HEPARIN 1000 UNITS/ML 10ML ONE (12:29)
[2025-06-06] MEDS ORDERED: MIDAZOLAM HCL 2 MG/2 ML VIAL ONE (12:29)
[2025-06-06] MEDS ORDERED: FENTANYL CITRATE/PF 50MCG/ML 2ML VIAL ONE (12:29)
[2025-06-06] MEDS ORDERED: IODIXANOL 320MG/ML 100 ML BOTTLE IV ONE (12:30)
[2025-06-06] MEDS ORDERED: LIDOCAINE HCL 1% 20ML VIAL ONE (12:30)
[2025-06-06 12:42] LABS: HEMATOCRIT. 31.9 % (42.0-52.0); HEMOGLOBIN. 10.7 g/dL (14.0-18.0); MEAN PLATELET VOLUME 8.3 fl (7.4-10.4); PLATELET 237 x1000/uL (130-400); RED BLOOD CELL COUNT 3.36 mill/uL (4.7-6.1); RED CELL DISTRIBUTION WIDTH 14.0 % (11.6-14.6)
[2025-06-06 20:00] VITALS: BP 114/73; PULSE 73; RESP 18; TEMP 36.1; O2SAT 100
[2025-06-06 20:42] LABS: BAND% 1.0 % (1.0-6.0); EOSINOPHILS % MANUAL 10.0 % (0.0-5.0); LYMPHOCYTES % MANUAL 12.0 % (20.0-50.0); METAMYELOCYTES % 1.0 % (0-0); MONOCYTES % MANUAL 6.0 % (2.0-8.0); MYELOCYTES % 2.0 % (0-0); NEUTROPHILS % MANUAL 68.0 % (45.0-75.0); PLATELET ESTIMATE NORMAL
[2025-06-07] VITALS: BP 113/53; PULSE 79; RESP 18; TEMP 36.4; O2SAT 98
[2025-06-07 04:00] VITALS: BP 114/62; PULSE 82; RESP 18; TEMP 36.6; O2SAT 100
[2025-06-07 08:00] VITALS: BP 117/66; PULSE 85; RESP 18; TEMP 36.6; O2SAT 97
[2025-06-07] MEDS ORDERED: INSU100I28 SQ (09:59)
[2025-06-07] MEDS: CLOPIDOGREL 75MG TABLET PO SCH (10:39)
[2025-06-07 12:00] VITALS: BP 111/70; PULSE 80; RESP 18; TEMP 36.5; O2SAT 98
[2025-06-07] MEDS ORDERED: LEVO750T68 MT (13:49)
[2025-06-07] MEDS ORDERED: AMOX1TAB16 MT (13:50)
[2025-06-07 16:00] VITALS: BP 112/57; PULSE 83; RESP 18; TEMP 35.6; O2SAT 98
[2025-06-07 20:00] VITALS: BP 99/57; PULSE 80; RESP 18; TEMP 36.4; O2SAT 100
[2025-06-08] VITALS: BP 97/57; PULSE 83; RESP 18; TEMP 36.4; O2SAT 100
[2025-06-08 04:00] VITALS: BP 88/37; PULSE 78; RESP 18; TEMP 36.3; O2SAT 100
[2025-06-08 20:00] VITALS: BP 118/66; PULSE 77; RESP 18; TEMP 36.5; O2SAT 100
[2025-06-09] VITALS: BP 124/67; PULSE 86; RESP 18; TEMP 36.4; O2SAT 100
[2025-06-09 17:29] VITALS: BP 121/69; PULSE 85; RESP 18; TEMP 97.1
== END 2025-06-09 19:18 | disposition home or self-care (01) | DRG 710 ==
LOC: ER 16:03 → 6WST 21:45 → EDBEDREQ 21:55 → EDBEDREQTM 21:55 → ENRESERV 23:04 → 4WST 06-01 18:41
PROVIDERS: ADMIT Internal Medicine; ATTEND Internal Medicine
PROC: 0Y9N0ZZ Drainage of Left Foot, Open Approach (ICD-10-PCS; 2025-05-31)
PROC: 047S3ZZ Dilation of Left Posterior Tibial Artery, Percutaneous Approach (ICD-10-PCS; principal; 2025-06-06)
PROC: B41GYZZ Fluoroscopy of Left Lower Extremity Arteries using Other Contrast (ICD-10-PCS; 2025-06-06)
DX: A41.9 Sepsis, unspecified organism (principal); E87.20 Acidosis, unspecified; L03.116 Cellulitis of left lower limb; D64.9 Anemia, unspecified; E11.621 Type 2 diabetes mellitus with foot ulcer; E11.51 Type 2 diabetes mellitus with diabetic peripheral angiopathy without gangrene; F10.10 Alcohol abuse, uncomplicated; E11.65 Type 2 diabetes mellitus with hyperglycemia; Y90.9 Presence of alcohol in blood, level not specified; I10 Essential (primary) hypertension; L02.612 Cutaneous abscess of left foot; L97.529 Non-pressure chronic ulcer of other part of left foot with unspecified severity; Z79.02 Long term (current) use of antithrombotics/antiplatelets; Z79.4 Long term (current) use of insulin; Z79.82 Long term (current) use of aspirin; Z79.84 Long term (current) use of oral hypoglycemic drugs; Z83.3 Family history of diabetes mellitus; Z79.899 Other long term (current) drug therapy; Z87.11 Personal history of peptic ulcer disease; Z89.421 Acquired absence of other right toe(s)
CPT/HCPCS: 36415; 37228; 71045; 73630; 73718; 75635; 75710; 80048; 80061; 80076; 80202; 81003; 82962; 83036; 83605; 83880; 84145; 85025; 85347; 86850; 86900; 87070; 87075; 87077; 87186; 93005; 93923; 93970; 96365; 96375; 99291; A4606; A6449; C1769; C1887; C1893; J0665; J1200; J1644; J1650; J1815; J2003; J2185; J2250; J2270; J2371; J2405; J2543; J2704; J3010; J3373; J3490; J7030; Q9967; C1725